=== PATIENT | male | born 1970 | race Caucasian/White ===

== ENCOUNTER 2018-08-29 09:57 | Emergency (ER) | payer OTHER ==
[~2018-08-29] VITALS: Ht 185.4 cm; Wt 131.5 kg
[2018-08-29] MEDS ORDERED: methylPREDNISolone SOD SUCC PF 125 MG/2 ML VIAL. IV ONE (10:45)
[2018-08-29] MEDS ORDERED: HYDROcodone/APAP 5/325MG 1 TAB TABLET PO ONE (10:45)
[2018-08-29] MEDS ORDERED: PRED-220 PO (10:47)
[2018-08-29] MEDS ORDERED: HYDR-3165 PO (10:47)
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
[2018-08-29] MEDS ORDERED: methylPREDNISolone SOD SUCC PF 125 MG/2 ML VIAL. IM ONE (11:00)
[2018-08-29 11:35] VITALS: BP 150/39
== END 2018-08-29 11:36 | disposition home or self-care (01) ==
LOC: ER 09:57
DX: M54.41 Lumbago with sciatica, right side (principal)
CPT/HCPCS: 96372; 99283; J2930

== ENCOUNTER 2019-12-07 00:50 | Emergency (ER) | payer OTHER ==
[~2019-12-07] VITALS: Ht 188 cm; Wt 145.5 kg
[2019-12-07 00:50] VITALS: BP 155/106
[~2019-12-07 00:50] MED LIST: HYDR-3165 PO; PRED-220 PO
[2019-12-07] MEDS ORDERED: silver sulfADIAZINE 1% CREAM 50GM JAR. TP ONE ×2 (01:14→02:15)
[2019-12-07] MEDS ORDERED: HYDR-3165 PO (01:28)
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
[2019-12-07] MEDS ORDERED: DIPH,PERTUSS(ACELL),TET VAC/PF 0.5 ML SYRINGE. VAX IM ONE (01:30)
[2019-12-07] MEDS ORDERED: HYDROcodone/APAP 7.5/325MG 1 TAB TABLET PO ONE (02:00)
[2019-12-07] MEDS ORDERED: MORPHINE SULFATE 2 MG/ML DISP.SYRIN. IM ONE (02:30)
== END 2019-12-07 02:17 | disposition home or self-care (01) ==
LOC: ER 00:50
DX: T23.231A Burn of second degree of multiple right fingers (nail), not including thumb, initial encounter (principal); X11.8XXA Contact with other hot tap-water, initial encounter; Y93.89 Activity, other specified; Y92.89 Other specified places as the place of occurrence of the external cause; Y99.8 Other external cause status
CPT/HCPCS: 16020; 99283; J2270